=== PATIENT | female | born 1965 | race Caucasian/White ===

== ENCOUNTER 2020-06-04 07:51 | Outpatient (REF) | payer OTHER, SELFPAY ==
--- NOTE | 2020-06-04 07:57 | MM_ITS ---
EXAMINATION: MM SCREENING DIGITAL BREAST TOMOSYNTHESIS, BILATERAL CLINICAL INFORMATION: Screening. Asymptomatic. The lifetime risk of breast cancer based on the Tyrer-Cuzick Model is 9.7%. COMPARISON: Mammography: 05/30/2019 and studies dating back to 04/02/2014 TECHNIQUE: Digital breast tomosynthesis is performed in both the craniocaudal and mediolateral oblique views along with computer-aided detection (CAD). Synthesized 2D images are generated from the tomosynthesis. Left exaggerated craniocaudal view also performed. FINDINGS: The breasts are heterogeneously dense, which may obscure small masses (ACR BI-RADS breast composition Category c). Within the deep lateral aspect of the right breast on craniocaudal view only approximately 10 cm from nipple, there is a 1.2 cm circumscribed density for which further evaluation with spot compression view and possible ultrasound is recommended. Left breast has a stable parenchymal pattern without abnormal dominant mass or suspicious grouping of microcalcifications. MM/MM tomosynthesis screening BI IMPRESSION: Circumscribed density deep lateral aspect of the right breast for further evaluation. ASSESSMENT: BI-RADS 0: Incomplete - Need Additional Imaging Evaluation. RECOMMENDATION: 1. Additional views of the right breast in craniocaudal projection. 2. Targeted ultrasound if warranted after review of the additional views. 3. Radiology department staff will contact the patient for additional imaging. This patient's information was entered into a reminder system with a target due date for their next mammogram.
== END 2020-06-04 07:52 | disposition home or self-care (01) ==
LOC: HO.MAMMO 07:51
PROVIDERS: PCP Internal Medicine; Visit Provider Advanced Practice Midwife
DX: Z12.31 Encounter for screening mammogram for malignant neoplasm of breast (principal)
CPT/HCPCS: 77063; 77067

== ENCOUNTER 2020-06-09 14:25 | Outpatient (REF) | payer OTHER, SELFPAY ==
--- NOTE | 2020-06-09 14:45 | MM_ITS ---
EXAMINATION: MM DIAGNOSTIC DIGITAL BREAST TOMOSYNTHESIS, RIGHT US DIAGNOSTIC ULTRASOUND BREAST, RIGHT CLINICAL INFORMATION: Recall from screening for smooth nodule posterior outer right breast on CC tomography approximately 1.1 cm. COMPARISON: Mammography: 06/04/2020, 05/30/2019 TECHNIQUE: Digital breast tomosynthesis is performed. 2D images are generated from the tomosynthesis. The following views are obtained: Spot CC, spot exaggerated CC, standard ML. Ultrasound right breast is targeted to the outer quadrant. Grayscale imaging and color Doppler are performed without and with harmonics. FINDINGS: The breasts are heterogeneously dense, which may obscure small masses (ACR BI-RADS breast composition Category c). The additional views confirm a 1.1 cm smooth nodule posterior 9:30 o'clock position with partly obscured margins, due to the overlapping tissue. There is no spiculation or associated calcification. Finding is new from 2019. Ultrasound right breast demonstrates 2 simple cysts posterior 9:00 position, 10 cm from nipple, measuring 1.1 x 0.7 cm and 0.9 x 0.6 cm, respectively. Both show increased through-transmission of sound, circumscribed margins, and no associated color flow. There is no solid mass or architectural abnormality. Results are discussed with the patient at time of visit. MM/MM tomosynthesis added views R IMPRESSION: There are 2 simple cyst posterior 9:00 right breast, the larger 1.1 x 0.7 cm. ASSESSMENT: BI-RADS 2: Benign RECOMMENDATION: Routine annual mammography screening. This patient's information was entered into a reminder system with a target due date for their next mammogram.
== END 2020-06-09 14:26 | disposition home or self-care (01) ==
LOC: HO.MAMMO 14:25
PROVIDERS: Visit Provider Advanced Practice Midwife
DX: R92.2 Inconclusive mammogram (principal)
CPT/HCPCS: 76642; 77065

== ENCOUNTER 2020-06-29 07:19 | Outpatient (REF) | payer OTHER, SELFPAY ==
[2020-06-29 11:24] LABS: Hematocrit 44.2 % (37-47); Hemoglobin 14.5 g/dl (12.0-16.0); Mean Corpuscular HGB Conc 32.8 g/dl (31.0-35.0); Mean Corpuscular Hemoglobin 27.5 pg (27.0-33.0); Mean Corpuscular Volume 83.7 fL (80-98); Mean Platelet Volume 9.8 fL (9.4-12.3); Platelet Count 382 X10*3/uL (160-400); Red Blood Count 5.28 X10*6/uL (4.20-5.50); Red Cell Distribution Width 12.9 % (11.0-16.0); White Blood Count 8.9 X10*3/uL (4.8-10.8)
[2020-06-29 11:56] LABS: Alanine Aminotransferase 31 U/L (0-31); Albumin Level 4.4 g/dL (3.5-5.0); Alkaline Phosphatase 94 U/L (39-117); Anion Gap 12 (12-20); Aspartate Amino Transferase 20 U/L (5-31); Bilirubin Total 0.4 mg/dL (0.0-1.0); Blood Urea Nitrogen 19 mg/dL (9-16); Calcium 9.1 mg/dL (8.4-10.2); Carbon Dioxide 28 mmol/L (22-29); Chloride 102 mmol/L (96-108); Cholesterol 188 mg/dL; Estimated Glomerular Filt Rate > 60; Glucose Fasting 90 mg/dL (60-99); HDL Cholesterol 43 mg/dL; Iron 56 mcg/dL (30-160); LDL Cholesterol Calculated 116 mg/dl; Percent Iron Saturation 15 % (15-50); Potassium 3.8 mmol/l (3.3-5.1); Sodium 138 mmol/L (135-145); Total Iron Binding Capacity 377 mcg/dL (228-428); Triglycerides 147 mg/dL; Unsaturated Iron Binding 321 ug/dL
[2020-06-29 11:58] LABS: Glucose Urine UA NEG (NEG); Leukocyte Esterase Urine 1+ (NEG); Nitrite Urine NEG (NEG); PH 5.5 (5.0-8.0); Specific Gravity - Urine >= 1.030 (1.005-1.025); Urine Blood NEG (NEG); Urine Ketones NEG (NEG); Urine Protein NEG (NEG-TRACE)
[2020-06-29 12:05] LABS: Thyroid Stimulating Hormone 0.84 uIU/mL (0.32-4.0)
[2020-06-29 12:08] LABS: Appearance Urine TURBID; Color Urine YELLOW
[2020-06-29 12:58] LABS: Amorphous Sediment Urine 4+ /LPF; Bacteria Urine 1+ /LPF; RBC Urine 0 /HPF (0); Squamous Epithelial Cell Urine 1+ /LPF
== END 2020-06-29 07:20 | disposition home or self-care (01) ==
LOC: HO.HMGCLDS 07:19
PROVIDERS: PCP Internal Medicine; Visit Provider Internal Medicine
DX: D64.9 Anemia, unspecified (principal); E55.9 Vitamin D deficiency, unspecified; I10 Essential (primary) hypertension
CPT/HCPCS: 36415; 80053; 80061; 81001; 81003; 83540; 84443; 85027

== ENCOUNTER → 2020-07-15 07:51 | Outpatient (BNVA) | payer OTHER, SELFPAY | PROVIDERS: PCP Internal Medicine; Visit Provider Advanced Practice Midwife | DX: Z76.89 Persons encountering health services in other specified circumstances (principal) ==

== ENCOUNTER 2021-07-11 06:19 | Outpatient (REF) | payer OTHER, SELFPAY ==
[2021-07-11 11:59] LABS: Hematocrit 42.1 % (37.0-47.0); Hemoglobin 13.6 g/dl (12.0-16.0); Mean Corpuscular HGB Conc 32.3 g/dl (31.0-35.0); Mean Corpuscular Hemoglobin 27.1 pg (27.0-33.0); Mean Corpuscular Volume 83.9 fL (80.0-98.0); Platelet Count 409 X10*3/uL (160-400); Red Blood Count 5.02 X10*6/uL (4.20-5.50); Red Cell Distribution Width 13.3 % (11.0-16.0); White Blood Count 7.9 X10*3/uL (4.8-10.8)
[2021-07-11 12:48] LABS: Alanine Aminotransferase 22 U/L (0-31); Albumin Level 4.1 g/dL (3.5-5.0); Alkaline Phosphatase 94 U/L (39-117); Anion Gap 17 (12-20); Aspartate Amino Transferase 17 U/L (5-31); Bilirubin Total 0.3 mg/dL (0.0-1.0); Blood Urea Nitrogen 15 mg/dL (9-16); Calcium 9.4 mg/dL (8.4-10.2); Carbon Dioxide 23 mmol/L (22-29); Chloride 104 mmol/L (96-108); Cholesterol 204 mg/dL; Estimated Glomerular Filt Rate > 60; Glucose Fasting 93 mg/dL (60-99); HDL Cholesterol 40 mg/dL; LDL Cholesterol Calculated 131 mg/dl; Potassium 3.7 mmol/L (3.3-5.1); Sodium 140 mmol/L (135-145); Total Protein 6.7 g/dL (6.5-8.0); Triglycerides 165 mg/dL
== END 2021-07-11 06:20 | disposition home or self-care (01) ==
LOC: HO.HMGCLDS 06:19
PROVIDERS: PCP Internal Medicine; Visit Provider Internal Medicine
DX: Z00.00 Encounter for general adult medical examination without abnormal findings (principal); I10 Essential (primary) hypertension; Z13.220 Encounter for screening for lipoid disorders; Z13.29 Encounter for screening for other suspected endocrine disorder
CPT/HCPCS: 36415; 80053; 80061; 84443; 85027

== ENCOUNTER 2021-07-18 08:25 | Outpatient (REF) | payer OTHER, SELFPAY ==
[2021-07-21 21:22] LABS: HPV mRNA E6/E7 rflx Not Detected (Not Detected)
== END 2021-07-18 08:26 | disposition home or self-care (01) ==
LOC: HO.LAB 08:25
PROVIDERS: Visit Provider Advanced Practice Midwife
DX: Z01.419 Encounter for gynecological examination (general) (routine) without abnormal findings (principal); Z11.51 Encounter for screening for human papillomavirus (HPV); N95.1 Menopausal and female climacteric states
CPT/HCPCS: 87624; 88142

== ENCOUNTER 2021-07-18 13:02 | Outpatient (REF) | payer OTHER, SELFPAY ==
--- NOTE | ~2021-07-18 | MM_ITS ---
EXAMINATION: MM SCREENING DIGITAL BREAST TOMOSYNTHESIS, BILATERAL CLINICAL INFORMATION: Screening. Asymptomatic. The lifetime risk of breast cancer based on the Tyrer-Cuzick Model is 19%. COMPARISON: Mammography: 06/09/2020, 06/04/2020, 05/30/2019, 05/13/2018; right breast ultrasound 06/09/2020. TECHNIQUE: Digital breast tomosynthesis is performed in both the craniocaudal and mediolateral oblique views along with computer-aided detection (CAD). Synthesized 2D images are generated from the tomosynthesis. FINDINGS: The breasts are heterogeneously dense, which may obscure small masses (ACR BI-RADS breast composition Category c). Dense tissue composition is limited to the upper outer quadrants. Parenchymal pattern is similar to prior studies. The cyst posterior upper outer right breast is decreased from prior study. Otherwise, no significant changes. No developing density or interval mass or architectural abnormality. No abnormal calcifications. The axilla are unremarkable. MM/MM tomosynthesis screening BI IMPRESSION: No mammographic evidence of malignancy. ASSESSMENT: BI-RADS 2: Benign RECOMMENDATION: Routine annual mammography screening. This patient's information was entered into a reminder system with a target due date for their next mammogram.
== END 2021-07-18 13:03 | disposition home or self-care (01) ==
LOC: HO.MAMMO 13:02
PROVIDERS: PCP Internal Medicine; Visit Provider Internal Medicine
DX: Z12.31 Encounter for screening mammogram for malignant neoplasm of breast (principal)
CPT/HCPCS: 77063; 77067

== ENCOUNTER 2022-07-10 06:14 | Outpatient (REF) | payer OTHER, SELFPAY ==
[2022-07-10 11:20] LABS: Appearance Urine Turbid; Color Urine Yellow; Glucose Urine UA Negative (Negative); Leukocyte Esterase Urine Moderate (2+) (Negative); Nitrite Urine Positive (Negative); PH 5.5 (5.0-9.0); Specific Gravity - Urine 1.025 (1.005-1.025); UMIC TRIGGER UA YES; Urine Blood Large (3+) (Negative); Urine Ketones Negative (Negative); Urine Protein 100 (2+) mg/dL (Neg-Trace)
[2022-07-10 11:34] LABS: Bacteria Urine 4+ (None Seen); Hyaline Casts Urine 0-2 /LPF (0-2); RBC Urine >20 /HPF (0-2); WBC Urine >50 /HPF (0-5)
[2022-07-10 13:04] LABS: Hematocrit 42.4 % (37.0-47.0); Mean Corpuscular Hemoglobin 27.6 pg (27.0-33.0); Mean Corpuscular Volume 83.6 fL (80.0-98.0); Mean Platelet Volume 10.2 fL (9.4-12.3); Platelet Count 337 X10*3/uL (160-400); Red Blood Count 5.07 X10*6/uL (4.20-5.50); Red Cell Distribution Width 13.8 % (11.0-16.0); White Blood Count 6.6 X10*3/uL (4.8-10.8)
[2022-07-10 13:20] LABS: Alanine Aminotransferase 24 U/L (0-31); Albumin Level 3.9 g/dL (3.5-5.0); Alkaline Phosphatase 99 U/L (39-117); Anion Gap 13 (12-20); Aspartate Amino Transferase 16 U/L (5-31); Bilirubin Total 0.2 mg/dL (0.0-1.0); Blood Urea Nitrogen 16 mg/dL (9-16); Calcium 9.4 mg/dL (8.4-10.2); Carbon Dioxide 27 mmol/L (22-29); Chloride 102 mmol/L (96-108); Cholesterol 180 mg/dL; Estimated Glomerular Filt Rate > 60; Glucose Fasting 97 mg/dL (60-99); HDL Cholesterol 41 mg/dL; LDL Cholesterol Calculated 118 mg/dl; Potassium 3.6 mmol/L (3.3-5.1); Sodium 138 mmol/L (135-145); TSH reflex Free T4 0.82 uIU/mL (0.32-4.0); Total Protein 6.4 g/dL (6.5-8.0); Triglycerides 107 mg/dL
== END 2022-07-10 06:15 | disposition home or self-care (01) ==
LOC: HO.HMGCLDS 06:14
PROVIDERS: PCP Internal Medicine; Visit Provider Internal Medicine
DX: Z00.00 Encounter for general adult medical examination without abnormal findings (principal); I10 Essential (primary) hypertension
CPT/HCPCS: 36415; 80053; 80061; 81001; 84443; 85027

== ENCOUNTER 2022-07-15 07:12 | Outpatient (REF) | payer OTHER, SELFPAY | END 2022-07-15 07:13 | disposition home or self-care (01) | LOC: HO.HMGCLDS 07:12 | PROVIDERS: PCP Internal Medicine; Visit Provider Internal Medicine | DX: R82.71 Bacteriuria (principal) | CPT/HCPCS: 87086; 87088; 87186 ==

== ENCOUNTER 2022-07-20 13:07 | Outpatient (REF) | payer OTHER, SELFPAY ==
--- NOTE | ~2022-07-20 | MM_ITS ---
EXAMINATION: MM SCREENING DIGITAL BREAST TOMOSYNTHESIS, BILATERAL CLINICAL INFORMATION: Screening. Asymptomatic. The lifetime risk of breast cancer based on the Tyrer-Cuzick Model is 17.3%. COMPARISON: Mammography: 07/18/2021 and studies dating back to 04/20/2016. TECHNIQUE: Digital breast tomosynthesis is performed in both the craniocaudal and mediolateral oblique views along with computer-aided detection (CAD). Synthesized 2D images are generated from the tomosynthesis. FINDINGS: The breasts are heterogeneously dense, which may obscure small masses (ACR BI-RADS breast composition Category c). There is a stable parenchymal pattern of the left breast. About the superior aspect of the right breast, there is a developing grouping of calcifications, for which spot magnification views are recommended. MM/MM tomosynthesis screening BI IMPRESSION: Right breast calcifications for further evaluation with spot magnification views. ASSESSMENT: BI-RADS 0: Incomplete - Need Additional Imaging Evaluation RECOMMENDATION: Spot magnification views of the right breast. This patient's information was entered into a reminder system with a target due date for their next mammogram.
== END 2022-07-20 13:08 | disposition home or self-care (01) ==
LOC: HO.MAMMO 13:07
PROVIDERS: PCP Internal Medicine; Visit Provider Internal Medicine
DX: Z12.31 Encounter for screening mammogram for malignant neoplasm of breast (principal)
CPT/HCPCS: 77063; 77067

== ENCOUNTER 2022-07-27 08:47 | Outpatient (REF) | payer OTHER, SELFPAY ==
--- NOTE | ~2022-07-27 | MM_ITS ---
EXAMINATION: MM DIAGNOSTIC DIGITAL MAMMOGRAPHY, RIGHT CLINICAL INFORMATION: Recall from screening for calcifications mid 12:00 right breast. COMPARISON: Mammography: 07/20/2022, 07/18/2021, 06/09/2020, 06/04/2020 TECHNIQUE: Digital mammography is performed in the following views: Magnification CC, magnification ML x2. FINDINGS: The breasts are heterogeneously dense, which may obscure small masses (ACR BI-RADS breast composition Category c). The additional magnification views demonstrate a few additional relatively coarse calcifications in the mid 12:00 position since 2019 possibly fibroadenomatous change. Management plan is for short interval follow-up right mammography in 6 months. Results are discussed with the patient at time of visit. MM/MM added views RT IMPRESSION: Additional views demonstrate benign-appearing calcifications mid 12:00 position, possibly fibroadenomatous change. ASSESSMENT: BI-RADS 3: Probably Benign RECOMMENDATION: Diagnostic right mammography in 6 months. This patient's information was entered into a reminder system with a target due date for their next mammogram.
== END 2022-07-27 08:48 | disposition home or self-care (01) ==
LOC: HO.MAMMO 08:47
PROVIDERS: PCP Internal Medicine; Visit Provider Internal Medicine
DX: R92.1 Mammographic calcification found on diagnostic imaging of breast (principal)
CPT/HCPCS: 77065

== ENCOUNTER 2022-07-31 08:41 | Outpatient (REF) | payer OTHER, SELFPAY ==
[2022-07-31 11:48] LABS: Appearance Urine Turbid; Color Urine Dark Yellow; Glucose Urine UA Negative (Negative); Leukocyte Esterase Urine Negative (Negative); Nitrite Urine Negative (Negative); PH 5.5 (5.0-9.0); Specific Gravity - Urine 1.025 (1.005-1.025); Urine Blood Negative (Negative); Urine Ketones Negative (Negative); Urine Protein Negative (Neg-Trace)
== END 2022-07-31 08:42 | disposition home or self-care (01) ==
LOC: HO.HMGCLDS 08:41
PROVIDERS: PCP Internal Medicine; Visit Provider Internal Medicine
DX: Z00.00 Encounter for general adult medical examination without abnormal findings (principal); I10 Essential (primary) hypertension
CPT/HCPCS: 81003

== ENCOUNTER → 2022-10-11 07:51 | Outpatient (BNVA) | payer OTHER, SELFPAY | PROVIDERS: Visit Provider Advanced Practice Midwife | DX: Z13.89 Encounter for screening for other disorder (principal) ==

== ENCOUNTER 2022-10-25 10:28 | Outpatient (REF) | payer OTHER, SELFPAY ==
--- NOTE | ~2022-10-25 | US_ITS ---
EXAMINATION: US PELVIS CLINICAL INFORMATION: Menorrhagia. COMPARISON: None available. TECHNIQUE: Ultrasound of the pelvis was performed using both transabdominal and transvaginal transducers along with Doppler. Transvaginal imaging was performed due to inadequate visualization transabdominally. FINDINGS: Uterus: The uterus is anteverted and retroflexed measuring 8.8 x 6.4 x 6.2 cm. Large nabothian cysts are present, the largest measuring 1.5 cm. The double wall endometrial thickness is 0.7 mm. The uterus is smooth in contour and has normal myometrial echogenicity. There is a single 1.3 cm submucosal fibroid seen at the fundus. Adnexa: Only the right ovary could be seen measuring 2.4 x 1.4 x 1.5 cm for a volume of 2.6 mL. The left ovary was not seen. There is no free intraperitoneal fluid. US/US pelvic and transvaginal IMPRESSION: 1. A small 1.3 cm fundal submucosal fibroid. 2. Large nabothian cysts. 3. Nonvisualization of the left ovary.
[2022-10-26 18:58] LABS: Follicle Stimulating Hormone 94.9 mIU/mL
== END 2022-10-25 10:29 | disposition home or self-care (01) ==
LOC: HO.US 10:28
PROVIDERS: Visit Provider Advanced Practice Midwife
DX: N95.0 Postmenopausal bleeding (principal)
CPT/HCPCS: 36415; 76830; 76856; 83001

== ENCOUNTER 2022-11-10 10:09 | Outpatient (REF) | payer OTHER, SELFPAY | END 2022-11-10 10:10 | disposition home or self-care (01) | LOC: HO.LNP 10:09 | PROVIDERS: Visit Provider Advanced Practice Midwife | DX: N93.9 Abnormal uterine and vaginal bleeding, unspecified (principal); Z32.02 Encounter for pregnancy test, result negative; Z71.2 Person consulting for explanation of examination or test findings | CPT/HCPCS: 58100; 81025; 88305 ==

== ENCOUNTER → 2022-11-15 09:51 | Outpatient (BNVA) | payer OTHER, SELFPAY | PROVIDERS: PCP Internal Medicine; Visit Provider Advanced Practice Midwife | DX: Z13.89 Encounter for screening for other disorder (principal) ==

== ENCOUNTER 2023-01-26 14:40 | Outpatient (REF) | payer OTHER, SELFPAY ==
--- NOTE | ~2023-01-26 | MM_ITS ---
EXAMINATION: MM DIAGNOSTIC DIGITAL BREAST TOMOSYNTHESIS, RIGHT CLINICAL INFORMATION: Short interval follow-up probable benign calcifications mid 12:00 right breast possibly fibroadenomatous change. TC score 17%. COMPARISON: Mammography: 07/27/2022, 07/20/2022 (BI-RADS 0), 07/18/2021 TECHNIQUE: Digital breast tomosynthesis is performed in both the craniocaudal and mediolateral oblique views along with computer-aided detection (CAD). Synthesized 2D images are generated from the tomosynthesis. Additional magnification right CC and magnification right ML views are obtained. FINDINGS: The breasts are heterogeneously dense, which may obscure small masses (ACR BI-RADS breast composition Category c). The calcifications for follow-up are benign-appearing and similar to prior diagnostic exam. There are no increasing calcifications or pleomorphic types. Breast parenchymal pattern is similar to prior studies and there is no developing density or interval mass or architectural abnormality. The axilla and skin contours are unremarkable. Results are provided to the patient at time of visit by the technologist. MM/MM tomosynthesis diagnostic RT IMPRESSION: -Benign appearing calcifications mid upper right breast similar to prior diagnostic exam. ASSESSMENT: BI-RADS 3: Probably Benign RECOMMENDATION: Diagnostic mammography at time of annual bilateral mammography, due in 6 months. This patient's information was entered into a reminder system with a target due date for their next mammogram.
== END 2023-01-26 14:41 | disposition home or self-care (01) ==
LOC: HO.MAMMO 14:40
PROVIDERS: PCP Internal Medicine; Visit Provider Internal Medicine
DX: R92.1 Mammographic calcification found on diagnostic imaging of breast (principal)
CPT/HCPCS: 77061; 77065

== ENCOUNTER 2023-07-23 06:52 | Outpatient (REF) | payer OTHER, SELFPAY ==
[2023-07-23 11:16] LABS: MANUAL DIFF FLAG NO
[2023-07-23 11:39] LABS: Basophils Absolute Auto 0.1 X10*3/uL (0.0-0.2); Basophils Percent Auto 0.9 % (0-2); Eosinophils Absolute Auto 0.2 X10*3/uL (0.0-0.4); Eosinophils Percent Auto 3.2 % (0-4); Hematocrit 44.8 % (37.0-47.0); Hemoglobin 14.8 g/dl (12.0-16.0); Imm Gran Abs Auto 0.02 X10*3/uL (0.00-0.03); Imm Gran Pct Auto 0.3 % (0.0-0.4); Mean Corpuscular Hemoglobin 28.1 pg (27.0-33.0); Mean Platelet Volume 9.9 fL (9.4-12.3); Monocytes Absolute Auto 0.6 X10*3/uL (0.1-1.2); Monocytes Percent Auto 8.6 % (2-11); Platelet Count 342 X10*3/uL (160-400); Red Blood Count 5.27 X10*6/uL (4.20-5.50); Red Cell Distribution Width 13.3 % (11.0-16.0); White Blood Count 6.9 X10*3/uL (4.8-10.8)
[2023-07-23 12:10] LABS: Alanine Aminotransferase 40 U/L (0-31); Albumin Level 4.3 g/dL (3.5-5.0); Alkaline Phosphatase 98 U/L (39-117); Anion Gap 14 (12-20); Aspartate Amino Transferase 26 U/L (5-31); Bilirubin Total 0.5 mg/dL (0.0-1.0); Blood Urea Nitrogen 17 mg/dL (9-16); Calcium 9.8 mg/dL (8.4-10.2); Carbon Dioxide 25 mmol/L (22-29); Chloride 106 mmol/L (96-108); Cholesterol 198 mg/dL (<200); Estimated Glomerular Filt Rate > 60; Glucose Fasting 105 mg/dL (60-99); HDL Cholesterol 45 mg/dL (>40); LDL Cholesterol Calculated 127 mg/dL (<100); Potassium 3.6 mmol/L (3.3-5.1); Sodium 141 mmol/L (135-145); Total Protein 7.3 g/dL (6.5-8.0); Triglycerides 131 mg/dL (<150)
[2023-07-23 12:28] LABS: TSH reflex Free T4 0.87 uIU/mL (0.32-4.0); Vitamin D 25-OH Total 82.1 ng/mL (>30)
== END 2023-07-23 06:53 | disposition home or self-care (01) ==
LOC: HO.HMGCLDS 06:52
PROVIDERS: PCP Internal Medicine; Visit Provider Internal Medicine
DX: Z00.00 Encounter for general adult medical examination without abnormal findings (principal); I10 Essential (primary) hypertension
CPT/HCPCS: 36415; 80053; 80061; 82306; 84443; 85025

== ENCOUNTER 2023-07-24 06:45 | Outpatient (REF) | payer OTHER, SELFPAY | END 2023-07-24 06:46 | disposition home or self-care (01) | LOC: HO.HMGCLNP 06:45 | PROVIDERS: PCP Internal Medicine; Visit Provider Internal Medicine | DX: I10 Essential (primary) hypertension (principal); R82.71 Bacteriuria | CPT/HCPCS: 87086; 87088; 87186 ==

== ENCOUNTER 2023-08-01 07:45 | Outpatient (AMB) | payer OTHER, SELFPAY ==
--- NOTE | 2023-08-01 08:08 | MHC.PC.OV ---
Vital Signs 08/01/23 08:09 Height 5 ft 9 in Weight 240 lb BMI 35.4 BP 120/78 Blood Pressure Location Lt brachial Position Sitting Pulse 79 Pulse Source Pulse Oximeter Pulse Oximetry (%) 97 Oxygen Delivery Method Room Air Intake Visit Reasons: Annual Intake Note: Pt is here today for PE. Allergies No Known Allergies Allergy (Verified 08/01/23 08:10) Medication List - Last Reconciled 08/01/23 by Sangeetha Mukherjee MD amlodipine 5 mg PO DAILY hydrochlorothiazide 25 mg PO QAM lisinopril 40 mg PO DAILY nitrofurantoin monohyd/m-cryst 100 mg (Macrobid) 100 mg PO Q12H 7 days Tobacco use date assessed: 08/01/23 Dental Screening Dental Screen Date: 08/01/23 Did you have a dental visit in the last 12 months?: Yes Did you have a dental problem in the last 6 months where you did not have access to dental care?: No Was dental information given to patient?: Patient has dentist HPI Annual HPI Details Patient presents for physical. She is taking Macrobid for asymptomatic bacteriuria. 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 1. Little interest or pleasure in doing things: not at all 2. Feeling down, depressed, or hopeless: not at all 3. Trouble falling or staying asleep, or sleeping too much: not at all 4. Feeling tired or having little energy: not at all 5. Poor appetite or overeating: not at all 6. Feeling bad about yourself - or that you are a failure or have let yourself or your family down: not at all 7. Trouble concentrating on things, such as reading the newspaper or watching television: not at all 8. Moving or speaking so slowly that other people could have noticed. Or the opposite - being so fidgety or restless that you have been moving around a lot more than usual: not at all 9. Thoughts that you would be better off or of hurting yourself in some way: not at all Total score: 0 Depression Screening Interpretation: Negative Depression Screening Done: Yes 54749 - PHQ-9 Billing: Patient declined-do not bill Source: Developed by Drs. Kyle Siddiqui, Echo Gamboa, Aung Cr and colleagues, with an educational campbell from [employer]. Thrive Questionnaire Date Thrive assessed: 08/01/23 I am a: Patient What is your living situation today?: I have a steady place to live Within the past 12 months, did the food you bought not last and you didn't have the money to get more?: Never true Within the past 12 months, did you worry whether your food would run out before you got money to buy more?: Never true Do you have trouble paying for medicines?: No Do you have trouble getting transportation to medical appointments?: No Do you have trouble paying your heating and electricity bill?: No Do you have trouble taking care of your child, family member or friend?: No Do you have trouble with day-to-day activities such as bathing, preparing meals, shopping, managing finances, etc.?: No Are you currently unemployed and looking for a job?: No Are you interested in more education?: No Please select the resources that you would like help with: None AUDIT C Alcohol Use Questionnaire (AUDIT-C) 1. How often do you have a drink containing alcohol?: Monthly or less 2. How many drinks containing alcohol do you have on a typical day when you are drinking?: 1 or 2 3. How often do you have six or more drinks on one occasion?: Never Total Score: 1 GERSON-7 AMB Questionnaire GERSON-7 Date GERSON - 7 assessed: 08/01/23 Feeling nervous, anxious, or on edge: 0 = Not at all Not being able to stop or control worryin = Not at all Worrying too much about different things: 0 = Not at all Trouble relaxin = Not at all Being so restless that it is hard to sit still: 0 = Not at all Becoming easily annoyed or irritable: 0 = Not at all Feeling afraid as if something awful might happen: 0 = Not at all Total GERSON-7 score (0-4 normal; 5-9 mild; 10-14 moderate; 15-21 severe): 0 Source: Developed by Drs. Kyle Siddiqui, Echo Gamboa, Aung Cr and colleagues, with an educational campbell from [employer]. Review of Systems Const All systems reviewed & are unremarkable except as noted in HPI and below Reports no additional complaints Eyes Reports no additional complaints ENT Reports no additional complaints Card Reports no additional complaints Resp Reports no additional complaints GI Reports no additional complaints Reports no additional complaints Physical exam (Primary Care) Vital Signs: Last Vital Signs Pulse 79 08/01/23 08:09 BP 120/78 08/01/23 08:09 Pulse Ox 97 08/01/23 08:09 Oxygen Delivery Method Room Air 08/01/23 08:09 BMI result Body Mass Index 35.4 Tobacco/Smoking Status: Tobacco use Status Tobacco use date assessed 08/01/23 08/01/23 08:12 Patient Tobacco Use Status Never used Tobacco 08/01/23 08:14 e-Cigarette/Vaping Use Never Used 08/01/23 08:12 PHQ-9: PHQ-9 Score PHQ-9: Total score 0 08/01/23 08:14 Depression Screening Interpretation: Negative Thrive Assessment: Date of Thrive Assessment Date Thrive assessed 08/01/23 08/01/23 08:14 Const General: no acute distress HENMT Ears: hearing grossly normal bilaterally Mouth: Normal oral and palatal mucosa present Eyes General: appearance normal, both eyes and all related structures Neck Neck: Yes no lymphadenopathy and Yes supple Resp Effort & Inspection: normal respiratory effort Auscultation: clear to auscultation bilaterally Cardio Rhythm: regular rhythm Heart sounds: S1 normal heart sound present and S2 normal heart sound present GI Inspection: Yes normal to inspection Palpation (GI): Soft to palpation Percussion: Yes normal to percussion Auscultation: normal bowel sounds Assessment and Plan Assessment & Plan (1) Bacteriuria: Code(s): R82.71 - Bacteriuria Plan: For asymptomatic bacteriuria patient will complete Macrobid and recheck urinalysis with urine culture a week after the treatment (2) HTN (hypertension): Code(s): I10 - Essential (primary) hypertension Plan: Continue current medications (3) Annual physical exam: Code(s): Z00.00 - Encounter for general adult medical examination without abnormal findings Plan: Well-balanced diet regular physical activity weight loss discussed with the patient, she will follow-up in 6 months with a fasting labs before (4) Normal 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 Panel Fast 6 Months I10 - Essential (primary) hypertension, R73.9 - Hyperglycemia, unspecified, Z00.00 - Encounter for general adult medical examination without abnormal findings Hemoglobin A1c 6 Months I10 - Essential (primary) hypertension, R73.9 - Hyperglycemia, unspecified, Z00.00 - Encounter for general adult medical examination without abnormal findings Lipid Panel 6 Months I10 - Essential (primary) hypertension, R73.9 - Hyperglycemia, unspecified, Z00.00 - Encounter for general adult medical examination without abnormal findings UA CC w/rflx Micro + Cult Today R82.71 - Bacteriuria Coding Level of Care Code Est Pt Prev Care 40-64y([id number]) Diagnoses Bacteriuria R82.71 HTN (hypertension) I10 Annual physical exam Z00.00 Normal Pap smear Z12.4
[2023-08-01 08:09] VITALS: BP 120/78; PULSE 79; O2SAT 97; BMI 35.4
== END 2023-08-01 09:31 | disposition home or self-care (01) ==
PROVIDERS: Visit Provider Internal Medicine
DX: R82.71 Bacteriuria (principal); I10 Essential (primary) hypertension; Z00.00 Encounter for general adult medical examination without abnormal findings; Z12.4 Encounter for screening for malignant neoplasm of cervix
CPT/HCPCS: 99396

== ENCOUNTER 2023-08-03 10:42 | Outpatient (REF) | payer OTHER, SELFPAY ==
--- NOTE | ~2023-08-03 | MM_ITS ---
EXAMINATION: MM DIAGNOSTIC DIGITAL BREAST TOMOSYNTHESIS, BILATERAL CLINICAL INFORMATION: 6 month re-evaluation calcifications right breast upper outer quadrant. COMPARISON: Mammography: 07/27/2022, 07/20/2022 (BI-RADS 0), 07/18/2021, and dating back to 2016. TECHNIQUE: Digital breast tomosynthesis is performed in both the craniocaudal and mediolateral oblique views along with computer-aided detection (CAD). Synthesized 2D images are generated from the tomosynthesis. In addition, 2-D spot magnification of the right breast in the CC and ML views were performed. FINDINGS: There are scattered areas of fibroglandular density (ACR BI-RADS breast composition Category b). Calcifications in the upper outer right breast have a very benign type appearance, are not pleomorphic, are rounded, without branching or linear forms, with approximately 5 total calcifications. These are probably benign, and 1 year follow-up recommended. In addition, a focal asymmetry in the left breast posterior one third, 6:00 axis is most likely related to a cyst and has been stable since 2018. This is benign. A second focal asymmetry in the posterior one third right breast along the nipple line on the CC projection has also been present and unchanged since 2020, benign. No additional abnormal findings in either breast. MM/MM tomosynthesis diagnostic BI IMPRESSION: There are no findings suspicious for malignancy in either breast. Probably benign calcifications upper outer right breast as detailed. 1 year follow-up recommended to include standard magnification views. ASSESSMENT: BI-RADS BI-RADS 3 - Probably benign finding(s) - 12 month follow-up suggested RECOMMENDATION: 12 month diagnostic follow up Results were provided to the patient at time of visit by the technologist. This patient's information was entered into a reminder system with a target due date for their next mammogram.
== END 2023-08-03 10:43 | disposition home or self-care (01) ==
LOC: HO.MAMMO 10:42
PROVIDERS: PCP Internal Medicine; Visit Provider Internal Medicine
DX: R92.1 Mammographic calcification found on diagnostic imaging of breast (principal)
CPT/HCPCS: 77062; 77066

== ENCOUNTER → 2023-08-03 11:00 | Outpatient (BNV) | payer OTHER, SELFPAY | PROVIDERS: PCP Internal Medicine; Visit Provider Radiology Diagnostic Radiology | DX: R92.1 Mammographic calcification found on diagnostic imaging of breast (principal) | CPT/HCPCS: 77062; 77066 ==

== ENCOUNTER 2023-10-17 07:52 | Outpatient (AMB) | payer OTHER, SELFPAY ==
--- NOTE | 2023-10-17 07:55 | MHC.OFFVIS ---
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 She is doing well with no concerns. LMP January, bleeds-spotting every 23d. History of polypoid tissue on EMB. Attempting to eat a healthy diet (weight watcher) with calcium and vitamin D, working on exercise. Currently sexually active. Denies any vaginal dryness or irritation. Last pap smear; 2020. Last mammogram; 2022. Colonoscopy is UTD. Denies any family history of breast, ovarian or colon cancer. 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 Current occupational exposures/hazards: No Sexual orientation: Straight/Heterosexual Gender identity: Female Cognitive needs: No Hearing needs: No Vision needs: Yes Female Reproductive History Menstrual Age of Menarche: 12 Date of last menstrual period: 01/13/23 Total pregnancies: 1 Full term: 1 Number of Living Children: 1 Date of last pap smear: 07/18/21 (neg pap and hpv) History of abnormal pap smear: Yes (04/30 ascus) Date of Mammogram: 08/03/23 (Birad 3) Review of Systems Const All systems reviewed & are unremarkable except as noted in HPI and below Reports as per HPI Eyes Reports no additional complaints ENT Reports no additional complaints Card Reports no additional complaints Resp Reports no additional complaints GI Reports as per HPI and Reports no additional complaints Reports as per HPI Musc Reports no additional complaints Skin/Breast Reports as per HPI Neuro Reports no additional complaints Psych Reports no additional complaints Endo Reports no additional complaints Josef/Lymph Reports no additional complaints Aller/Immun Reports no additional complaints Physical Exam Vital Signs: Last Vital Signs BP 114/70 10/17/23 07:58 BMI result Body Mass Index 34.8 Const General: cooperative, healthy appearing, no acute distress, well developed and alert Orientation/consciousness: patient oriented x3 HEENT Head: Yes normal to inspection Eyes General: appearance normal, both eyes and all related structures Neck Neck: Yes normal visual inspection Thyroid: Thyroid normal Chest Chest palpation & inspection: normal inspection of the chest and other (no puckering, dimpling, peau de orange, retraction, discharge, masses) Breast/axilla inspection: normal inspection of the breasts Breast/axilla palpation: normal palpation of the breasts Resp Effort & Inspection: normal respiratory effort GI Inspection: Yes normal to inspection Palpation (GI): Soft to palpation Rectal Exam - Female: deferred General: Yes bladder normal to palpation External Female Exam: normal external appearance and normal appearance of the urethra Speculum Exam - Vagina: normal appearance of the vagina, normal palpation and normal vaginal discharge Speculum Exam - Cervix: normal appearance of the cervix and normal palpation Bimanual exam- vagina & uterus: normal bimanual exam, normal palpation, uterine size normal, bladder normal to palpation, normal palpation and non-tender Bimanual Exam- Adnexa, other: no masses Skin General skin exam: no rashes or lesions noted Rashes: no rashes Neuro General: patient oriented x3 Cognition (Neuro): normal cognition Extrem General: Yes normal to inspection Psych Attitude: cooperative Thought process: Normal thought process present Assessment & Plan Assessment & Plan (1) Well woman exam with routine gynecological exam: Code(s): Z01.419 - Encounter for gynecological examination (general) (routine) without abnormal findings Plan Discussed: Current recommendations for pap smears per ASCCP guidelines. Breast awareness, periodic self breast exams and yearly mammogram. Maintain a healthy lifestyle, well balanced diet including Calcium 1,200 mg and Vitamin D 600 IU daily, and routine exercise. Appt. for MD consult for hysteroscopy next week. Patient verbalizes understanding and agrees to the plan of care. She was given opportunity to ask questions and all questions were answered to the best of my ability. RTO in 1 year for annual game artist exam. This note is constructed using voice recognition software. While every effort has been made to ensure accuracy, web solutions architect errors may have been included. Coding Level of Care Code Est Pt Prev Care 40-64y(18570) Diagnoses Well woman exam with routine gynecological exam Z01.419
[2023-10-17 07:58] VITALS: BP 114/70; BMI 34.8
== END 2023-10-17 09:38 | disposition home or self-care (01) ==
PROVIDERS: PCP Internal Medicine; Visit Provider Advanced Practice Midwife
DX: Z01.419 Encounter for gynecological examination (general) (routine) without abnormal findings (principal)
CPT/HCPCS: 99396

== ENCOUNTER → 2023-10-17 07:52 | Outpatient (BNVA) | payer OTHER, SELFPAY | PROVIDERS: PCP Internal Medicine; Visit Provider Advanced Practice Midwife ==

== ENCOUNTER 2023-10-24 15:58 | Outpatient (AMB) | payer OTHER, SELFPAY ==
--- NOTE | 2023-10-24 16:06 | A.OFFVIS_ITS ---
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 The patient has been having irregular vaginal bleeding/spotting over the last year. Last ultrasound done in 11/02 showed the following: IMPRESSION: 1. A small 1.3 cm fundal submucosal fibr oid. 2. Large nabothian cysts. 3. 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 Current occupational exposures/hazards: No Sexual orientation: Straight/Heterosexual Gender identity: Female Cognitive needs: No Hearing needs: No Vision needs: Yes Female Reproductive History Menstrual Age of Menarche: 12 Date of last menstrual period: 06/10/20 Total pregnancies: 2 Full term: 2 Review of Systems Card Reports as per HPI and Reports no additional complaints Resp Reports as per HPI and Reports no additional complaints GI Reports as per HPI and Reports no additional complaints Reports as per HPI Physical Exam Vital Signs: Last Vital Signs BP 118/74 10/24/23 16:09 BMI result Body Mass Index 34.8 Const General: cooperative, healthy appearing and comfortable Chest Chest palpation & inspection: normal inspection of the chest and normal palpation of entire chest wall Breast/axilla inspection: normal inspection of the breasts and normal inspection of the axillae Breast/axilla palpation: normal palpation of the breasts, normal palpation of the axillae and no axillary lymphadenopathy Resp Effort & Inspection: normal respiratory effort Auscultation: clear to auscultation bilaterally Percussion: percussion normal Cardio Palpation: normal PMI Rate: regular rate Rhythm: regular rhythm Heart sounds: no murmurs and no rubs Peripheral pulses: Peripheral pulses 2+ throughout GI Inspection: Yes normal to inspection Palpation (GI): Soft to palpation, nontender, no guarding, not rigid and No hepatosplenomegaly present Percussion: Yes normal to percussion Auscultation: normal bowel sounds Rectal Exam - Female: deferred Assessment & Plan Assessment & Plan (1) Postmenopausal bleeding: Comment: polyp on emb path submucosal myoma Code(s): N95.0 - Postmenopausal bleeding Plan: Discussed with the patient the differential diagnosis of post menopausal bleeding including but not limited to, endometrial hyperplasia, cancer, polyps and other causes. Discussed with the patient the finding on endometrial biopsy pathology showing fragments endometrial polyp and the finding of a submucosal myoma on pelvic ultrasound done in 11/02. Recommended to the patient repeat pelvic ultrasound and that the next step is an endometrial sampling via hysteroscopy D&C possible polypectomy versus endometrial biopsy to r/o endometrial pathology including hyperplasia or cancer. All the pros and cons risks and benefits of each approach were discussed with the patient, endometrial biopsy being less invasive, office procedure with less sensitivity and inability diagnose a polyp and removal versus hysteroscopy done under anesthesia more invasive more sensitive to endometrial cancer and possibility of diagnosing and endometrial polyp with the possibility of polypectomy. All questions were answered pt verbalized understanding and decided to proceed with endometrial biopsy (2) Uterine myoma: Code(s): D25.9 - Leiomyoma of uterus, unspecified Plan: Since a 1.3 cm submucosal myoma was found on ultrasound done a year ago, will repeat pelvic ultrasound Orders: Orders US pelvic and transvaginal 10/24/23 N95.0 - Postmenopausal bleeding Coding Level of Care Code Est Pt Level 3 (96933) Diagnoses Postmenopausal bleeding N95.0 Uterine myoma D25.9
[2023-10-24 16:09] VITALS: BP 118/74; BMI 34.8
== END 2023-10-25 07:28 | disposition home or self-care (01) ==
PROVIDERS: PCP Internal Medicine; Visit Provider Obstetrics & Gynecology
DX: N95.0 Postmenopausal bleeding (principal); D25.9 Leiomyoma of uterus, unspecified
CPT/HCPCS: 99213

== ENCOUNTER → 2023-10-24 15:58 | Outpatient (BNVA) | payer OTHER, SELFPAY | PROVIDERS: PCP Internal Medicine; Visit Provider Obstetrics & Gynecology ==

== ENCOUNTER 2023-11-09 11:16 | Outpatient (REF) | payer OTHER, SELFPAY ==
--- NOTE | ~2023-11-09 | US_ITS ---
EXAMINATION: US PELVIS CLINICAL INFORMATION: Postmenopausal bleeding. COMPARISON: 10/25/2022 TECHNIQUE: Ultrasound of the pelvis is performed using both transabdominal and transvaginal transducers along with Doppler. Transvaginal imaging is performed due to inadequate visualization transabdominally. FINDINGS: The uterus measures 9.9 x 4.3 x 5.1 cm. A 1.5 x 1.5 x 1.7 cm fibroid. Previous exam demonstrated a 1.2 x 1.1 x 1.3 cm fibroid. 0.5 cm hypoechoic uterine lesion characteristic of a fibroid was not previously identified. No significant free fluid. Left ovary not visualized. Limited visualization due to bowel gas. Endometrial thickness is 6 mm. Right ovary measures 1.8 x 1.1 x 1.4 cm, volume 1.5 mL. Right ovary is grossly unremarkable, however, visualization is limited due to bowel gas. US/US pelvic and transvaginal IMPRESSION: Endometrial thickness is 6 mm which is abnormal for a patient with postmenopausal bleeding. Gynecologic consultation and correlation with clinical exam recommended to determine further management including possible biopsy. Uterine fibroids. Nonvisualization of the left ovary.
== END 2023-11-09 11:17 | disposition home or self-care (01) ==
LOC: HO.US 11:16
PROVIDERS: PCP Internal Medicine; Visit Provider Obstetrics & Gynecology
DX: N95.0 Postmenopausal bleeding (principal)
CPT/HCPCS: 76830; 76856

== ENCOUNTER 2023-11-23 05:49 | Day surgery (SDC) | payer OTHER, SELFPAY ==
[2023-11-20 07:46] VITALS: BMI 34.7
--- NOTE | 2023-11-21 11:39 | HO.ANESPROP2 ---
Documented by User: Ruthann Greer NP 11/21/23 11:40 HPI - Anesthesia Eval Consult details Narrative: 58yo F for D&C Hysteroscopy,possible myomectomy,possible polypectomy PMFSH Active Problems Active Problems: All Active Problems Uterine myoma (Acute) Postmenopausal bleeding (Acute) Hyperglycemia (Acute) Bacteriuria (Acute) HTN (hypertension) (Acute) Normal colonoscopy (Acute) Annual physical exam (Acute) Mammogram normal (Acute) Normal Pap smear (Acute) Well woman exam with routine gynecological exam (Acute) Past Medical History Medical History Normal colonoscopy Annual physical exam Mammogram normal Normal Pap smear Malignant melanoma Elevated cholesterol HTN (hypertension) Family History Family History Paternal Aunt Breast cancer Surgical History Surgical History History of Social History Social History Housing: House Alcohol intake: never Patient Tobacco Use Status: Never used Tobacco e-Cigarette/Vaping Use: Never Used Second Hand Smoke Exposure: No Use of substances other than those prescribed or required for medical reasons: No Are you DNR?: No Advance Directives: No Advance Directives Information Provided: Yes service: No Current occupational status: employed 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 Current occupational exposures/hazards: No Sexual orientation: Straight/Heterosexual Gender identity: Female Cognitive needs: No Hearing needs: No Vision needs: Yes Meds Allergies Allergy/AdvReac Type Severity Reaction Status Date / Time No Known Allergies Allergy Verified 10/24/23 16:09 Exam Height,Weight and Vital Signs: Height 5 ft 9 in Weight 106.594 kg Pertinent Lab Results Pertinent Lab Results: Laboratory Tests 07/23/23 06:55 WBC 6.9 Hgb 14.8 Hct 44.8 Plt Count 342 Sodium 141 Potassium 3.6 Chloride 106 Carbon Dioxide 25 BUN 17 H Creatinine 0.85 Assessment and Plan Assessment Anesthesia Assessment: Chart Reviewed Documented by User: Dickson Jones MD 11/23/23 07:29 PMF Past Medical History Medical History Normal colonoscopy Annual physical exam Mammogram normal Normal Pap smear Malignant melanoma Elevated cholesterol HTN (hypertension) Family History Family History Paternal Aunt Breast cancer Family history of problems with anesthesia: No Surgical History Surgical History History of History of Problems with Anesthesia: No Social History Social History Housing: House Alcohol intake: never Patient Tobacco Use Status: Never used Tobacco e-Cigarette/Vaping Use: Never Used Second Hand Smoke Exposure: No Use of substances other than those prescribed or required for medical reasons: No Are you DNR?: No Advance Directives: No Advance Directives Information Provided: Yes service: No Current occupational status: employed 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 Current occupational exposures/hazards: No Sexual orientation: Straight/Heterosexual Gender identity: Female Cognitive needs: No Hearing needs: No Vision needs: Yes Meds Allergies Allergy/AdvReac Type Severity Reaction Status Date / Time No Known Allergies Allergy Verified 10/24/23 16:09 Exam Airway Mallampati Class: I TM Dist: <=3cm Neck ROM: Full Loose/Missing/Broken Teeth: No Heart: ok Lungs: ok Assessment and Plan Assessment Anesthesia Assessment: Anesthesia Plan Discussed Final Anesthetic Review Family History of Problems with Anesthesia: No History of Problems with Anesthesia: No NPO: Yes ASA Class: II Final Preanesthetic Review: No Changes in Pt Med Stat, Meds/Allgs Chart Reviewed, Consent Obtained/Reviewed and Anes Risks/Benef Reviewed Patient Risk: Intermediate Procedure Risk: Low Anesthetic Plan Anesthetic Plan: GA and Agree w/ Assess. and Plan Disposition: Standard PACU
[2023-11-23 06:10] VITALS: BMI 35.4
[2023-11-23 06:19] VITALS: BP 115/69; PULSE 92; RESP 16; TEMP 36.2; O2SAT 93
[2023-11-23] MEDS: Lactated Ringers 1,000 ML 100 ML IVCONT (06:34)
--- NOTE | 2023-11-23 07:27 | MHC.SHP ---
Pre-Procedural Eval Section A - 24 Hr Update-Section A only Date of Service: 11/23/23 The patient is an INPATIENT: No Changes since office visit: No Cold of Flu in the past 2 weeks, No New Medical Problems, No Changes in Medication and No Patient answered all questions The patient has been examined within 24 hours of the surgical procedure. The History & Physical has been completed within 30 days and I have reviewed it.: Yes Section B - Complete if H&P > 30 days Chief Complaint: Postmenopausal bleeding Allergies: Allergies Allergy/AdvReac Type Severity Reaction Status Date / Time No Known Allergies Allergy Verified 10/24/23 16:09 Plan Diagnosis/Plan: Unchanged I have reviewed the history and physical and performed a pertinent physical examination on my patient. No changes have occurred unless specified. Time Spent With Patient Time: Total time managing care of this patient today ____ minutes.
--- NOTE | 2023-11-23 08:12 | P.BOP_ITS ---
Brief Operative Note Date of Service: 11/23/23 Pre-op diagnosis: Postmenopausal bleeding, endometrial polyp on EMB pathology Post-op diagnosis: same (Endometrial polyp) Procedure: Hysteroscopy D&C, Polypectomy Surgeon: Pete Lim MD Anesthesia: GLMA Was an Compressed Gases Tester used for this Procedure?: No Estimated blood loss (mL): 0 Pathology: other (Endometrial Scrapping. Polyp) Condition: stable Disposition: PACU
--- NOTE | 2023-11-23 08:13 | W.PM.OPN ---
Operative Note Operative Note Date of Service: 11/23/23 Narrative: Preop Diagnosis: Postmenopausal bleeding, Endometrial polyp on EMB pathology Operation: Diagnostic Hysteroscopy, Dilataion & Curettage and polypectomy Post Op Diagnosis: Endometrial Polyp QBL: Minimal Anesthesia: GLMA Surgeon: Pete Lim MD Ping Pong Table Assembler: None Complication: None Pathology: Endometrial Scrapings, Endometrial polyp Procedure: The patient was put in the dorsal lithotomy position, scrubbed, and draped in the usual manner. A sterile speculum was inserted in the patient's vagina. The anterior lip of the cervix was grasped with a single tooth tenaculum. The cervix was dilated up to 5 mm, then the scope was inserted in the patient's uterus. Inspection revealed endometrial polyp. The Myosure Reach device was used; it was introduced through the operative channel and polypectomy done with no complications. The scope was then taken out from the uterine cavity, sharp curettings was carried on with minimal to moderate amount of tissues retrieved. At the end of the procedure, all instruments were taken out of the patient uterine and vaginal cavity. The single tooth tenaculum was removed and homeostasis was assured using pressure,. The patient tolerated the procedure well and was transferred to the PACU in a stable condition.
[2023-11-23 08:16] VITALS: BP 104/50; PULSE 76; RESP 14; TEMP 36.4; O2SAT 92
[2023-11-23 08:22] VITALS: BP 100/58; PULSE 70; RESP 18; O2SAT 96
[2023-11-23 08:27] VITALS: BP 104/62; PULSE 70; RESP 18; O2SAT 96
[2023-11-23 08:32] VITALS: BP 111/59; PULSE 77; RESP 18; TEMP 36.6; O2SAT 98
== END 2023-11-23 09:01 | disposition home or self-care (01) ==
PROVIDERS: PCP Internal Medicine; Visit Provider Obstetrics & Gynecology
PROC: 0UDB8ZZ Extraction of Endometrium, Via Natural or Artificial Opening Endoscopic (ICD-10-PCS; CPT 58558; principal; 2023-11-23 07:30)
DX: N95.0 Postmenopausal bleeding (principal); N84.0 Polyp of corpus uteri; D25.9 Leiomyoma of uterus, unspecified; I10 Essential (primary) hypertension; E78.00 Pure hypercholesterolemia, unspecified; Z85.820 Personal history of malignant melanoma of skin; Z79.899 Other long term (current) drug therapy
CPT/HCPCS: 58558; 88305; J1885; J2405; J2704; J3010

== ENCOUNTER → 2023-11-23 05:49 | Outpatient (BNV) | payer OTHER, SELFPAY | PROVIDERS: PCP Internal Medicine; Visit Provider Obstetrics & Gynecology | DX: N95.0 Postmenopausal bleeding (principal) | CPT/HCPCS: 58558 ==

== ENCOUNTER 2023-12-05 11:44 | Outpatient (AMB) | payer OTHER, SELFPAY ==
--- NOTE | 2023-12-05 11:47 | MHC.OFFVIS ---
Vital Signs 12/05/23 11:51 Height 5 ft 9 in Weight 236 lb BMI 34.8 BP 110/70 Intake Visit Reasons: Ultra sound follow up/post op Allergies No Known Allergies Allergy (Verified 10/24/23 16:09) HPI Comments Details: The patient is presenting post hysteroscopy D&C no complaints minimal vaginal bleeding no feverishness chills or abdominal pain. The pathology showed the following: A. Endometrial polyp, resection: Fragments of benign endometrial polyp; no atypia or carcinoma. B. Endometrium, curettage: Benign atrophic endometrium, fragments of benign polyp, and benign endocervical glandular and squamous epithelium; no atypia or carcinoma PFS Medical History Normal colonoscopy Annual physical exam Mammogram normal Normal Pap smear Malignant melanoma Elevated cholesterol HTN (hypertension) Surgical History History of Family History Paternal Aunt Breast cancer Social History Housing: House Alcohol intake: never Patient Tobacco Use Status: Never used Tobacco e-Cigarette/Vaping Use: Never Used Second Hand Smoke Exposure: No service: No Current occupational status: employed 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 Current occupational exposures/hazards: No Sexual orientation: Straight/Heterosexual Gender identity: Female Cognitive needs: No Hearing needs: No Vision needs: Yes Female Reproductive History Menstrual Age of Menarche: 12 Review of Systems Const All systems reviewed & are unremarkable except as noted in HPI and below Reports as per HPI and Reports no additional complaints GI Reports no additional complaints Reports no additional complaints Physical Exam Vital Signs: Last Vital Signs BP 110/70 12/05/23 11:51 BMI result Body Mass Index 34.8 Assessment & Plan Assessment & Plan (1) Postmenopausal bleeding: Comment: polyp on emb path status post polypectomy Code(s): N95.0 - Postmenopausal bleeding Category: Medical Plan: Discussed with the patient the results of the pathology of the polypectomy and endometrial scrapings. Discussed with the patient the sensitivity, specificity, positive and negative predictive value, of endometrial biopsy in detecting endometrial pathology including but not limited to endometrial hyperplasia, cancer and other pathology; instructed the patient to call in case vaginal bleeding bleeding recurs, the next step will be to proceed with further endometrial sampling evaluation to rule out endometrial pathology. All questions answered and the patient verbalized understanding and agreed with the plan. Coding Level of Care Code Est Pt Level 3 (52707) Diagnoses Postmenopausal bleeding N95.0
[2023-12-05 11:51] VITALS: BP 110/70; BMI 34.8
== END 2023-12-05 12:35 | disposition home or self-care (01) ==
PROVIDERS: PCP Internal Medicine; Visit Provider Obstetrics & Gynecology
DX: N95.0 Postmenopausal bleeding (principal)
CPT/HCPCS: 99213

== ENCOUNTER → 2023-12-05 11:44 | Outpatient (BNVA) | payer OTHER, SELFPAY | PROVIDERS: PCP Internal Medicine; Visit Provider Obstetrics & Gynecology ==

== ENCOUNTER 2024-02-05 11:00 | Outpatient (AMB) | payer OTHER, SELFPAY ==
[2024-02-05 11:02] VITALS: BP 106/70; PULSE 99; O2SAT 95; BMI 34.6
--- NOTE | 2024-02-05 11:02 | A.OFFPC_ITS ---
Vital Signs 02/05/24 11:02 Height 5 ft 9 in Weight 234 lb BMI 34.6 BP 106/70 Blood Pressure Location Rt brachial Position Sitting Pulse 99 Pulse Source Pulse Oximeter Pulse Oximetry (%) 95 Oxygen Delivery Method Room Air Intake Visit Reasons: 6 Month follow up Intake Note: Pt is here today for 6 months follow up visit. Allergies No Known Allergies Allergy (Verified 02/05/24 11:04) Medication List - Last Reconciled 02/05/24 by Sangeetha Mukherjee MD amlodipine 5 mg PO DAILY hydrochlorothiazide 25 mg PO QAM lisinopril 40 mg PO DAILY Tobacco use date assessed: 02/05/24 Dental Screening Dental Screen Date: 02/05/24 Did you have a dental visit in the last 12 months?: Yes Did you have a dental problem in the last 6 months where you did not have access to dental care?: No Was dental information given to patient?: Patient has dentist HPI 6 Month follow up HPI Details Patient presents for the follow-up on hypertension controlled on curr ent medications. She joined weight [employer] and lost 5 lb. 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 1. Little interest or pleasure in doing things: not at all 2. Feeling down, depressed, or hopeless: not at all 3. Trouble falling or staying asleep, or sleeping too much: not at all 4. Feeling tired or having little energy: not at all 5. Poor appetite or overeating: not at all 6. Feeling bad about yourself - or that you are a failure or have let yourself or your family down: not at all 7. Trouble concentrating on things, such as reading the newspaper or watching television: not at all 8. Moving or speaking so slowly that other people could have noticed. Or the opposite - being so fidgety or restless that you have been moving around a lot more than usual: not at all 9. Thoughts that you would be better off or of hurting yourself in some way: not at all Total score: 0 Depression Screening Interpretation: Negative Depression Screening Done: Yes Source: Developed by Drs. Kyle Siddiqui, Echo Gamboa, Aung Cr and colleagues, with an educational campbell from [employer]. Thrive Questionnaire Date Thrive assessed: 02/05/24 I am a: Patient What is your living situation today?: I have a steady place to live Within the past 12 months, did the food you bought not last and you didn't have the money to get more?: Never true Within the past 12 months, did you worry whether your food would run out before you got money to buy more?: Never true Do you have trouble paying for medicines?: No Do you have trouble getting transportation to medical appointments?: No Do you have trouble paying your heating and electricity bill?: No Do you have trouble taking care of your child, family member or friend?: No Do you have trouble with day-to-day activities such as bathing, preparing meals, shopping, managing finances, etc.?: No Are you currently unemployed and looking for a job?: No Are you interested in more education?: No Please select the resources that you would like help with: None THRIVE Score: 0 AUDIT C Alcohol Use Questionnaire (AUDIT-C) 2. How many drinks containing alcohol do you have on a typical day when you are drinking?: 1 or 2 3. How often do you have six or more drinks on one occasion?: Never Total Score: 0 GERSON-7 AMB Questionnaire GERSON-7 Date GERSON - 7 assessed: 02/05/24 Feeling nervous, anxious, or on edge: 0 = Not at all Not being able to stop or control worryin = Not at all Worrying too much about different things: 0 = Not at all Trouble relaxin = Not at all Being so restless that it is hard to sit still: 0 = Not at all Becoming easily annoyed or irritable: 0 = Not at all Feeling afraid as if something awful might happen: 0 = Not at all Total GERSON-7 score (0-4 normal; 5-9 mild; 10-14 moderate; 15-21 severe): 0 Source: Developed by Drs. Kyle Siddiqui, Echo Gamboa, Aung Cr and colleagues, with an educational campbell from [employer]. Review of Systems Const All systems reviewed & are unremarkable except as noted in HPI and below ENT Reports no additional complaints Card Reports no additional complaints Resp Reports no additional complaints GI Reports no additional complaints Reports no additional complaints Physical exam (Primary Care) Vital Signs: Last Vital Signs Pulse 99 02/05/24 11:02 BP 106/70 02/05/24 11:02 Pulse Ox 95 02/05/24 11:02 Oxygen Delivery Method Room Air 02/05/24 11:02 BMI result Body Mass Index 34.6 Tobacco/Smoking Status: Tobacco use Status Tobacco use date assessed 02/05/24 02/05/24 11:09 Patient Tobacco Use Status Never used Tobacco 02/05/24 11:09 e-Cigarette/Vaping Use Never Used 02/05/24 11:09 PHQ-9: PHQ-9 Score PHQ-9: Total score 0 02/05/24 11:09 Depression Screening Interpretation: Negative Thrive Assessment: Date of Thrive Assessment Date Thrive assessed 02/05/24 02/05/24 11:09 Const General: no acute distress Neck Neck: Yes supple Resp Effort & Inspection: normal respiratory effort Auscultation: clear to auscultation bilaterally Cardio Rhythm: regular rhythm Heart sounds: S1 normal heart sound present and S2 normal heart sound present GI Inspection: Yes normal to inspection Palpation (GI): Soft to palpation Percussion: Yes normal to percussion Auscultation: normal bowel sounds Assessment and Plan Assessment & Plan (1) HTN (hypertension): Code(s): I10 - Essential (primary) hypertension Plan: Continue current medications (2) Hyperglycemia: Code(s): R73.9 - Hyperglycemia, unspecified Plan: Continue ADA diet regular physical activity and weight loss. Check A1c today and in 6 months (3) Bacteriuria: Code(s): R82.71 - Bacteriuria Plan: Check UA and urine culture (4) Overweight: Code(s): E66.3 - Overweight Plan: Increase physical activity and decrease caloric intake and weight loss discussed with the patient Orders: Orders Hemoglobin A1c Today I10 - Essential (primary) hypertension, R73.9 - Hyperglycemia, unspecified, R82.71 - Bacteriuria UA w Microscopic Today I10 - Essential (primary) hypertension, R73.9 - Hyperglycemia, unspecified, R82.71 - Bacteriuria Urine Culture Today I10 - Essential (primary) hypertension, R73.9 - Hyperglycemia, unspecified, R82.71 - Bacteriuria Hemoglobin A1c 6 Months I10 - Essential (primary) hypertension, R73.9 - Hyperglycemia, unspecified, R82.71 - Bacteriuria Comprehensive [place]. Panel Fast 6 Months I10 - Essential (primary) hypertension, R73.9 - Hyperglycemia, unspecified, R82.71 - Bacteriuria Complete Blood Count Auto Diff 6 Months I10 - Essential (primary) hypertension, R73.9 - Hyperglycemia, unspecified, R82.71 - Bacteriuria Lipid Panel 6 Months I10 - Essential (primary) hypertension, R73.9 - Hyperglycemia, unspecified, R82.71 - Bacteriuria Lipid Panel Today I10 - Essential (primary) hypertension, R73.9 - Hyperglycemia, unspecified, R82.71 - Bacteriuria Comprehensive [place]. Panel Fast Today I10 - Essential (primary) hypertension, R73.9 - Hyperglycemia, unspecified, R82.71 - Bacteriuria UA w Microscopic 6 Months I10 - Essential (primary) hypertension, R73.9 - Hyperglycemia, unspecified, R82.71 - Bacteriuria Medications: Refilled hydrochlorothiazide 25 mg PO QAM 90 tabs 3RF lisinopril 40 mg PO DAILY 90 tabs 3RF I10 - Essential (primary) hypertension amlodipine 5 mg PO DAILY 90 tabs 3RF Coding Level of Care Code Est Pt Level 4 (48641) Diagnoses HTN (hypertension) I10 Hyperglycemia R73.9 Bacteriuria R82.71 Overweight E66.3
== END 2024-02-05 11:47 | disposition home or self-care (01) ==
PROVIDERS: PCP Internal Medicine; Visit Provider Internal Medicine
DX: I10 Essential (primary) hypertension (principal); R73.9 Hyperglycemia, unspecified; R82.71 Bacteriuria; E66.3 Overweight
CPT/HCPCS: 99214

== ENCOUNTER 2024-02-05 11:47 | Outpatient (REF) | payer OTHER, SELFPAY ==
[2024-02-05 13:14] LABS: Appearance Urine Clear; Color Urine Yellow; Glucose Urine UA Negative (Negative); Leukocyte Esterase Urine Negative (Negative); Nitrite Urine Negative (Negative); Urine Blood Negative (Negative); Urine Ketones Negative (Negative); Urine Protein Negative (Neg-Trace)
[2024-02-05 13:40] LABS: Alanine Aminotransferase 28 U/L (0-31); Albumin Level 4.5 g/dL (3.5-5.0); Alkaline Phosphatase 107 U/L (39-117); Anion Gap 14 (12-20); Aspartate Amino Transferase 22 U/L (5-31); Bilirubin Total 0.5 mg/dL (0.0-1.0); Blood Urea Nitrogen 19 mg/dL (9-16); Calcium 10.4 mg/dL (8.4-10.2); Carbon Dioxide 29 mmol/L (22-29); Chloride 103 mmol/L (96-108); Cholesterol 197 mg/dL (<200); Estimated Glomerular Filt Rate > 60; Glucose Fasting 97 mg/dL (60-99); HDL Cholesterol 45 mg/dL (>40); LDL Cholesterol Calculated 133 mg/dL (<100); Potassium 3.6 mmol/L (3.3-5.1); Sodium 142 mmol/L (135-145); Total Protein 7.6 g/dL (6.5-8.0); Triglycerides 98 mg/dL (<150)
[2024-02-05 13:41] LABS: Bacteria Urine Trace (None Seen); Hyaline Casts Urine 0-2 /LPF (0-2); RBC Urine 0-2 /HPF (0-2); Squamous Epithelial Cell Urine 0-2 /HPF (0-2); WBC Urine 0-5 /HPF (0-5)
[2024-02-05 13:45] LABS: Estimated Average Glucose 111 mg/dL; Hemoglobin A1c % 5.5 % (<6.0)
== END 2024-02-05 11:48 | disposition home or self-care (01) ==
LOC: HO.HMGCLDS 11:47
PROVIDERS: PCP Internal Medicine; Visit Provider Internal Medicine
DX: I10 Essential (primary) hypertension (principal); R73.9 Hyperglycemia, unspecified; R82.71 Bacteriuria
CPT/HCPCS: 36415; 80053; 80061; 81001; 83036; 87086

== ENCOUNTER 2024-07-30 14:38 | Outpatient (REF) | payer OTHER, SELFPAY ==
--- NOTE | ~2024-07-30 | MM_ITS ---
EXAMINATION: MM DIAGNOSTIC DIGITAL BREAST TOMOSYNTHESIS, BILATERAL CLINICAL INFORMATION: Two-year follow-up for right breast upper outer calcifications. COMPARISON: Mammography: Comparison is made with relevant prior exams. TECHNIQUE: Digital breast mammography with tomosynthesis is performed in both the craniocaudal and mediolateral oblique views along with computer-aided detection (CAD). FINDINGS: The breasts are heterogeneously dense, which may obscure small masses (ACR BI-RADS breast composition Category c). Grouped punctate calcifications in the upper outer right breast are not significantly changed on prior magnification views dating back for 2 years and therefore benign. There are no significant masses, abnormal calcifications, or other abnormalities. Results are provided to the patient at time of visit by the technologist. MM/MM tomosynthesis diagnostic BI IMPRESSION: No mammographic evidence of malignancy. ASSESSMENT: BI-RADS BI-RADS 2 - Benign Findings RECOMMENDATION: 1 year F/U This patient's information was entered into a reminder system with a target due date for their next mammogram. Electronically signed by: Daniela Cabrera DO 07/30/2024 03:34 PM ALEJANDRO NOONAN
== END 2024-07-30 14:39 | disposition home or self-care (01) ==
LOC: HO.MAMMO 14:38
PROVIDERS: PCP Internal Medicine; Visit Provider Internal Medicine
DX: R92.1 Mammographic calcification found on diagnostic imaging of breast (principal)
CPT/HCPCS: 77062; 77066

== ENCOUNTER → 2024-07-30 15:00 | Outpatient (BNV) | payer OTHER, SELFPAY | PROVIDERS: PCP Internal Medicine; Visit Provider Internal Medicine | DX: R92.333 Mammographic heterogeneous density, bilateral breasts (principal); R92.1 Mammographic calcification found on diagnostic imaging of breast | CPT/HCPCS: 77062; 77066 ==

== ENCOUNTER 2024-08-12 06:07 | Outpatient (REF) | payer OTHER, SELFPAY ==
[2024-08-12 09:52] LABS: MANUAL DIFF FLAG NO
[2024-08-12 09:57] LABS: Appearance Urine Turbid; Color Urine Yellow; Glucose Urine UA Negative (Negative); Leukocyte Esterase Urine Moderate (2+) (Negative); Nitrite Urine Positive (Negative); PH 5.5 (5.0-9.0); Specific Gravity - Urine 1.025 (1.005-1.025); UMIC TRIGGER UA YES; Urine Blood Trace (Negative); Urine Ketones Negative (Negative); Urine Protein Trace mg/dL (Neg-Trace)
[2024-08-12 10:08] LABS: Basophils Absolute Auto 0.1 X10*3/uL (0.0-0.2); Basophils Percent Auto 1.4 % (0-2); Eosinophils Absolute Auto 0.2 X10*3/uL (0.0-0.4); Eosinophils Percent Auto 3.4 % (0-4); Hematocrit 43.2 % (37.0-47.0); Hemoglobin 14.1 g/dl (12.0-16.0); Imm Gran Abs Auto 0.02 X10*3/uL (0.00-0.03); Imm Gran Pct Auto 0.3 % (0.0-0.4); Lymphocytes Percent Auto 28.2 % (20-40); Mean Corpuscular HGB Conc 32.6 g/dl (31.0-35.0); Mean Corpuscular Hemoglobin 27.5 pg (27.0-33.0); Mean Corpuscular Volume 84.2 fL (80.0-98.0); Mean Platelet Volume 9.4 fL (9.4-12.3); Monocytes Absolute Auto 0.6 X10*3/uL (0.1-1.2); Monocytes Percent Auto 8.5 % (2-11); Neutrophils Absolute Auto 4.1 x10*3/uL (2.0-8.3); Neutrophils Percent Auto 58.2 % (45-73); Platelet Count 329 X10*3/uL (160-400); Red Blood Count 5.13 X10*6/uL (4.20-5.50); Red Cell Distribution Width 13.3 % (11.0-16.0)
[2024-08-12 10:20] LABS: Bacteria Urine 4+ (None Seen); Calcium Oxalate Crystals Urine Present; Hyaline Casts Urine 0-2 /LPF (0-2); WBC Urine 21-50 /HPF (0-5)
[2024-08-12 10:33] LABS: Estimated Average Glucose 114 mg/dL; Hemoglobin A1C 139.2396 umol/L; Hemoglobin A1c % 5.6 % (<6.0); Total Hemoglobin (HGBA1C) 3735.7888 umol/L
[2024-08-12 10:47] LABS: Alanine Aminotransferase 72 U/L (0-31); Albumin Level 4.1 g/dL (3.5-5.0); Alkaline Phosphatase 109 U/L (39-117); Anion Gap 12 (12-20); Aspartate Amino Transferase 41 U/L (5-31); Bilirubin Total 0.5 mg/dL (0.0-1.0); Blood Urea Nitrogen 19 mg/dL (9-16); Calcium 9.1 mg/dL (8.4-10.2); Carbon Dioxide 27 mmol/L (22-29); Chloride 106 mmol/L (96-108); Cholesterol 204 mg/dL (<200); Estimated Glomerular Filt Rate > 60; Glucose Fasting 109 mg/dL (60-99); HDL Cholesterol 45 mg/dL (>40); LDL Cholesterol Calculated 135 mg/dL (<100); Potassium 3.5 mmol/L (3.3-5.1); Sodium 141 mmol/L (135-145); Total Protein 6.9 g/dL (6.5-8.0); Triglycerides 120 mg/dL (<150)
== END 2024-08-12 06:08 | disposition home or self-care (01) ==
LOC: HO.HMGCLDS 06:07
PROVIDERS: PCP Internal Medicine; Visit Provider Internal Medicine
DX: I10 Essential (primary) hypertension (principal); R73.9 Hyperglycemia, unspecified; R82.71 Bacteriuria
CPT/HCPCS: 36415; 80053; 80061; 81001; 83036; 85025

== ENCOUNTER 2024-08-19 08:16 | Outpatient (AMB) | payer OTHER, SELFPAY ==
[2024-08-19 08:20] VITALS: BP 120/74; PULSE 97; O2SAT 97; BMI 35.3
--- NOTE | 2024-08-19 08:20 | A.OFFPC_ITS ---
Vital Signs 08/19/24 08:20 Height 5 ft 9 in Weight 239 lb BMI 35.3 BP 120/74 Blood Pressure Location Lt brachial Position Sitting Pulse 97 Pulse Source Pulse Oximeter Pulse Oximetry (%) 97 Oxygen Delivery Method Room Air Intake Visit Reasons: PE Intake Note: Pt is here today for PE. Allergies No Known Allergies Allergy (Verified 08/19/24 08:22) Medication List - Last Reconciled 08/19/24 by Sangeetha Mukherjee MD amlodipine 5 mg PO DAILY hydrochlorothiazide 25 mg PO QAM lisinopril 40 mg PO DAILY nitrofurantoin monohyd/m-cryst 100 mg (Macrobid) 100 mg PO Q12H 7 days Tobacco use date assessed: 08/19/24 Dental Screening Dental Screen Date: 08/19/24 Did you have a dental visit in the last 12 months?: Yes Did you have a dental problem in the last 6 months where you did not have access to dental care?: No Was dental information given to patient?: Patient has dentist HPI PE HPI Details Patient presents for physical. She is retiring in February and will be taking care of her 2 month grandson. 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 1. Little interest or pleasure in doing things: not at all 2. Feeling down, depressed, or hopeless: not at all 3. Trouble falling or staying asleep, or sleeping too much: not at all 4. Feeling tired or having little energy: not at all 5. Poor appetite or overeating: not at all 6. Feeling bad about yourself - or that you are a failure or have let yourself or your family down: not at all 7. Trouble concentrating on things, such as reading the newspaper or watching television: not at all 8. Moving or speaking so slowly that other people could have noticed. Or the opposite - being so fidgety or restless that you have been moving around a lot more than usual: not at all 9. Thoughts that you would be better off or of hurting yourself in some way: not at all Total score: 0 Depression Screening Interpretation: Negative Depression Screening Done: Yes 46832 - PHQ-9 Billing: Yes Source: Developed by Drs. Kyle Siddiqui, Echo Gamboa, Aung Cr and colleagues, with an educational campbell from [employer] Thrive Questionnaire Date Thrive assessed: 08/19/24 I am a: Patient What is your living situation today?: I have a steady place to live Within the past 12 months, did the food you bought not last and you didn't have the money to get more?: Never true Within the past 12 months, did you worry whether your food would run out before you got money to buy more?: Never true Do you have trouble paying for medicines?: No Do you have trouble getting transportation to medical appointments?: No Do you have trouble paying your heating and electricity bill?: No Do you have trouble taking care of your child, family member or friend?: No Do you have trouble with day-to-day activities such as bathing, preparing meals, shopping, managing finances, etc.?: No Are you currently unemployed and looking for a job?: No Are you interested in more education?: No Please select the resources that you would like help with: None Currently or been in a relationship where the following occur: No concerns reported THRIVE Score: 0 AUDIT C Alcohol Use Questionnaire (AUDIT-C) 1. How often do you have a drink containing alcohol?: Monthly or less 2. How many drinks containing alcohol do you have on a typical day when you are drinking?: 1 or 2 3. How often do you have six or more drinks on one occasion?: Never Total Score: 1 GERSON-7 AMB Questionnaire GERSON-7 Date GERSON - 7 assessed: 08/19/24 Feeling nervous, anxious, or on edge: 0 = Not at all Not being able to stop or control worryin = Not at all Worrying too much about different things: 0 = Not at all Trouble relaxin = Not at all Being so restless that it is hard to sit still: 0 = Not at all Becoming easily annoyed or irritable: 0 = Not at all Feeling afraid as if something awful might happen: 0 = Not at all Total GERSON-7 score (0-4 normal; 5-9 mild; 10-14 moderate; 15-21 severe): 0 Source: Developed by Drs. Kyle Siddiqui, Echo Gamboa, Aung Cr and colleagues, with an educational campbell from [employer] GERSON-7 Assessment Billing GERSON-7 Assessment Tool: GERSON-7 Assessment 19744 Review of Systems Const All systems reviewed & are unremarkable except as noted in HPI and below Reports no additional complaints Eyes Reports no additional complaints ENT Reports no additional complaints Card Reports no additional complaints Resp Reports no additional complaints GI Reports no additional complaints Reports no additional complaints Physical exam (Primary Care) Vital Signs: Last Vital Signs Pulse 97 08/19/24 08:20 BP 120/74 08/19/24 08:20 Pulse Ox 97 08/19/24 08:20 Oxygen Delivery Method Room Air 08/19/24 08:20 BMI result Body Mass Index 35.3 Tobacco/Smoking Status: Tobacco use Status Tobacco use date assessed 08/19/24 08/19/24 08:25 Patient Tobacco Use Status Never used Tobacco 08/19/24 08:25 e-Cigarette/Vaping Use Never Used 08/19/24 08:25 PHQ-9: PHQ-9 Score PHQ-9: Total score 0 08/19/24 08:25 Depression Screening Interpretation: Negative Thrive Assessment: Date of Thrive Assessment Date Thrive assessed 08/19/24 08/19/24 08:25 Currently or been in a relationship where the following occur: No concerns reported Const General: no acute distress HENMT Head: Yes normal to inspection Ears: hearing grossly normal bilaterally Throat: Yes posterior oropharynx normal Neck Neck: Yes no lymphadenopathy and Yes supple Resp Effort & Inspection: normal respiratory effort Auscultation: clear to auscultation bilaterally Cardio Rhythm: regular rhythm Heart sounds: S1 normal heart sound present and S2 normal heart sound present GI Inspection: Yes normal to inspection Palpation (GI): Soft to palpation Percussion: Yes normal to percussion Auscultation: normal bowel sounds Coding Level of Care Code Est Pt Prev Care 40-64y(42087) Diagnoses HTN (hypertension) I10 Annual physical exam Z00.00 Elevated LFTs R79.89 Additional Codes GERSON-7 Assessment Billing - GERSON-7 Assessment Tool: GERSON-7 Assessment 02388 ([id number]) PHQ-9 - 22683 - PHQ-9 Billing: Yes ([id number]) Assessment & Plan Assessment & Plan (1) HTN (hypertension): Code(s): I10 - Essential (primary) hypertension Category: Medical Plan: Continue current medications (2) Annual physical exam: Code(s): Z00.00 - Encounter for general adult medical examination without abnormal findings Category: Medical Plan: Well-balanced diet regular physical activity discussed with the patient. She is up-to-date with the mammogram and Pap smear by inspector heating and refrigeration. (3) Elevated LFTs: Code(s): R79.89 - Other specified abnormal findings of blood chemistry Category: Medical Plan: Decrease simple carbohydrates, intake increase physical activity weight loss discussed with the patient, repeat LFTs in 1 month if still elevated liver ultrasound will be obtained. Patient will follow-up in 6 months with a fasting labs before Orders: Orders Lipid Panel 6 Months E66.3 - Overweight, I10 - Essential (primary) hypertension, R73.9 - Hyperglycemia, unspecified, R79.89 - Other specified abnormal findings of blood chemistry Liver Panel 1 Month E66.3 - Overweight, I10 - Essential (primary) hypertension, R73.9 - Hyperglycemia, unspecified, R79.89 - Other specified abnormal findings of blood chemistry Comprehensive [place]. Panel Fast 6 Months E66.3 - Overweight, I10 - Essential (primary) hypertension, R73.9 - Hyperglycemia, unspecified, R79.89 - Other specified abnormal findings of blood chemistry Hemoglobin A1c 6 Months E66.3 - Overweight, I10 - Essential (primary) hypertension, R73.9 - Hyperglycemia, unspecified, R79.89 - Other specified abnormal findings of blood chemistry Complete Blood Count Auto Diff 6 Months E66.3 - Overweight, I10 - Essential (primary) hypertension, R73.9 - Hyperglycemia, unspecified, R79.89 - Other specified abnormal findings of blood chemistry
== END 2024-08-19 08:41 | disposition home or self-care (01) ==
PROVIDERS: PCP Internal Medicine; Visit Provider Internal Medicine
DX: I10 Essential (primary) hypertension (principal); Z00.00 Encounter for general adult medical examination without abnormal findings; R79.89 Other specified abnormal findings of blood chemistry

== ENCOUNTER → 2024-08-19 08:16 | Outpatient (BNVA) | payer OTHER, SELFPAY | PROVIDERS: PCP Internal Medicine; Visit Provider Internal Medicine | DX: Z00.00 Encounter for general adult medical examination without abnormal findings (principal); I10 Essential (primary) hypertension; R79.89 Other specified abnormal findings of blood chemistry | CPT/HCPCS: 96127 ==

== ENCOUNTER 2024-10-28 07:58 | Outpatient (AMB) | payer OTHER, SELFPAY ==
--- NOTE | 2024-10-28 08:01 | A.OFFVIS_ITS ---
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 She is doing well with sustainment logistics analyst concerns. Currently sexually active. Denies any vaginal dryness or irritation. STI testing offered; she declines. Attempting to eat a healthy diet with calcium and vitamin D and stays active with exercise. Last pap smear; 2020. Last mammogram; 2023. Colonoscopy is UTD. Denies any family history of ovarian or colon cancer. FH breast cancer. 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 Current occupational exposures/hazards: No Sexual orientation: Straight/Heterosexual Gender identity: Female Cognitive needs: No Hearing needs: No Vision needs: Yes Female Reproductive History Menstrual Age of Menarche: 12 Menopause type: natural Total pregnancies: 1 Full term: 1 Number of Living Children: 1 Date of last pap smear: 07/18/21 (neg pap and hpv) Date of Mammogram: 07/30/24 ([facility] 2) Review of Systems Const All systems reviewed & are unremarkable except as noted in HPI and below Reports as per HPI Eyes Reports no additional complaints ENT Reports no additional complaints Card Reports no additional complaints Resp Reports no additional complaints GI Reports as per HPI and Reports no additional complaints Reports as per HPI Musc Reports no additional complaints Skin/Breast Reports as per HPI Neuro Reports no additional complaints Psych Reports no additional complaints Endo Reports no additional complaints Josef/Lymph Reports no additional complaints Aller/Immun Reports no additional complaints Physical Exam Vital Signs: Last Vital Signs BP 112/74 10/28/24 08:02 BMI result Body Mass Index 34.6 Const General: cooperative, healthy appearing, no acute distress, well developed and alert Orientation/consciousness: patient oriented x3 HEENT Head: Yes normal to inspection Eyes General: appearance normal, both eyes and all related structures Neck Neck: Yes normal visual inspection Thyroid: Thyroid normal Chest Chest palpation & inspection: normal inspection of the chest and other (no puckering, dimpling, peau de orange, retraction, discharge, masses) Breast/axilla inspection: normal inspection of the breasts Breast/axilla palpation: normal palpation of the breasts Resp Effort & Inspection: normal respiratory effort GI Inspection: Yes normal to inspection Palpation (GI): Soft to palpation Rectal Exam - Female: deferred General: Yes bladder normal to palpation External Female Exam: normal external appearance and normal appearance of the urethra Speculum Exam - Vagina: normal appearance of the vagina, normal palpation and normal vaginal discharge Speculum Exam - Cervix: normal appearance of the cervix and normal palpation Bimanual exam- vagina & uterus: normal bimanual exam, normal palpation, uterine size normal, bladder normal to palpation, normal palpation and non-tender Bimanual Exam- Adnexa, other: no masses Skin General skin exam: no rashes or lesions noted Rashes: no rashes Neuro General: patient oriented x3 Cognition (Neuro): normal cognition Extrem General: Yes normal to inspection Psych Attitude: cooperative Thought process: Normal thought process present Assessment & Plan Assessment & Plan (1) Well woman exam with routine gynecological exam: Code(s): Z01.419 - Encounter for gynecological examination (general) (routine) without abnormal findings Category: Medical Plan Discussed: Current recommendations for pap smears per ASCCP guidelines. Breast awareness, periodic self breast exams and yearly mammogram. Maintain a healthy lifestyle, well balanced diet including Calcium 1,200 mg and Vitamin D 600 IU daily, and routine exercise. Contact the office with any postmenopausal bleeding. Patient verbalizes understanding and agrees to the plan of care. She was given opportunity to ask questions and all questions were answered to the best of my ability. RTO in 1 year for annual sustainment logistics analyst exam. This note is constructed using voice recognition software. While every effort has been made to ensure accuracy, earth mover errors may have been included. Coding Level of Care Code Est Pt Prev Care 40-64y(36028) Diagnoses Well woman exam with routine gynecological exam Z01.419
[2024-10-28 08:02] VITALS: BP 112/74; BMI 34.6
== END 2024-10-28 08:37 | disposition home or self-care (01) ==
LOC: HO.HWS 07:58
PROVIDERS: PCP Internal Medicine; Visit Provider Advanced Practice Midwife
DX: Z01.419 Encounter for gynecological examination (general) (routine) without abnormal findings (principal)
CPT/HCPCS: 99396; 99459

== ENCOUNTER 2025-03-02 06:42 | Outpatient (REF) | payer OTHER, SELFPAY ==
[2025-03-02 10:07] LABS: MANUAL DIFF FLAG NO
[2025-03-02 10:25] LABS: Hematocrit 44.1 % (37.0-47.0); Hemoglobin 14.6 g/dl (12.0-16.0); Imm Gran Abs Auto 0.02 X10*3/uL (0.00-0.03); Imm Gran Pct Auto 0.3 % (0.0-0.4); Lymphocytes Absolute Auto 2.1 X10*3/uL (1.2-4.9); Mean Corpuscular HGB Conc 33.1 g/dl (31.0-35.0); Mean Corpuscular Hemoglobin 27.7 pg (27.0-33.0); Mean Corpuscular Volume 83.7 fL (80.0-98.0); NRBC Abs Auto 0.000 X10*3/uL (0.0-0.012); NRBC Pct Auto 0.0 /100WBC (0.0-0.2); Platelet Count 335 X10*3/uL (160-400); Red Blood Count 5.27 X10*6/uL (4.20-5.50); White Blood Count 7.0 X10*3/uL (4.8-10.8)
[2025-03-02 10:28] LABS: Hemoglobin A1C 142.1881 umol/L; Total Hemoglobin (HGBA1C) 3692.1018 umol/L
[2025-03-02 10:49] LABS: Alanine Aminotransferase 51 U/L (0-31); Albumin Level 4.4 g/dL (3.5-5.0); Alkaline Phosphatase 105 U/L (39-117); Anion Gap 12 (12-20); Aspartate Amino Transferase 30 U/L (5-31); Blood Urea Nitrogen 17 mg/dL (9-16); Calcium 9.3 mg/dL (8.4-10.2); Carbon Dioxide 28 mmol/L (22-29); Chloride 104 mmol/L (96-108); Cholesterol 186 mg/dL (<200); Estimated Glomerular Filt Rate > 60; HDL Cholesterol 40 mg/dL (>40); Potassium 3.4 mmol/L (3.3-5.1); Sodium 141 mmol/L (135-145); Total Protein 7.1 g/dL (6.5-8.0); Triglycerides 135 mg/dL (<150)
== END 2025-03-02 06:43 | disposition home or self-care (01) ==
LOC: HO.HMGCLDS 06:42
PROVIDERS: PCP Internal Medicine; Visit Provider Internal Medicine
DX: R79.89 Other specified abnormal findings of blood chemistry (principal); E66.3 Overweight; I10 Essential (primary) hypertension; R73.9 Hyperglycemia, unspecified
CPT/HCPCS: 36415; 80053; 80061; 80076; 82248; 83036; 85025

== ENCOUNTER 2025-03-03 13:35 | Outpatient (AMB) | payer OTHER, SELFPAY ==
[2025-03-03 13:37] VITALS: BP 122/78; PULSE 97; RESP 18; TEMP 36.4; O2SAT 97; BMI 35.4
--- NOTE | 2025-03-03 13:37 | MHC.PC.OV ---
Vital Signs 03/03/25 13:37 Height 5 ft 9 in Weight 240 lb BMI 35.4 BP 122/78 Blood Pressure Location Lt brachial Position Sitting Respiration 18 Pulse 97 Pulse Source Pulse Oximeter Temp 97.5 F Temp Source Oral Pulse Oximetry (%) 97 Oxygen Delivery Method Room Air Intake Visit Reasons: 6 months f/up Intake Note: Pt is here today for 6 months follow up visit. Allergies No Known Allergies Allergy (Verified 03/03/25 13:38) Medication List - Last Reconciled 03/03/25 by Sangeetha Mukherjee MD amlodipine 5 mg PO DAILY hydrochlorothiazide 25 mg PO QAM lisinopril 40 mg PO DAILY Tobacco use date assessed: 03/03/25 Dental Screening Dental Screen Date: 03/03/25 Did you have a dental visit in the last 12 months?: Yes Did you have a dental problem in the last 6 months where you did not have access to dental care?: No Was dental information given to patient?: Patient has dentist HPI 6 months f/up HPI Details Patient presents for the follow-up on hypertension. She retired and will be taking care of her 2-month-old grandson twice a week. 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 Current occupational exposures/hazards: No Sexual orientation: Straight/Heterosexual Gender identity: Female Cognitive needs: No Hearing needs: No Vision needs: Yes Female Reproductive History Menstrual Age of Menarche: 12 Questionnaire Thrive Questionnaire Date Thrive assessed: 08/19/24 I am a: Patient What is your living situation today?: I have a steady place to live Within the past 12 months, did the food you bought not last and you didn't have the money to get more?: Never true Within the past 12 months, did you worry whether your food would run out before you got money to buy more?: Never true Do you have trouble paying for medicines?: No Do you have trouble getting transportation to medical appointments?: No Do you have trouble paying your heating and electricity bill?: No Do you have trouble taking care of your child, family member or friend?: No Do you have trouble with day-to-day activities such as bathing, preparing meals, shopping, managing finances, etc.?: No Are you currently unemployed and looking for a job?: No Are you interested in more education?: No Please select the resources that you would like help with: None Currently or been in a relationship where the following occur: No concerns reported THRIVE Score: 0 GERSON-7 AMB Questionnaire GERSON-7 Date GERSON - 7 assessed: 08/19/24 Source: Developed by Drs. Kyle Siddiqui, Echo Gamboa, Aung Cr and colleagues, with an educational campbell from [employer]. Review of Systems Const All systems reviewed & are unremarkable except as noted in HPI and below ENT Reports no additional complaints Card Reports no additional complaints Resp Reports no additional complaints GI Reports no additional complaints Reports no additional complaints Physical exam (Primary Care) Vital Signs: Last Vital Signs Temp 97.5 F 03/03/25 13:37 Pulse 97 03/03/25 13:37 Resp 18 03/03/25 13:37 BP 122/78 03/03/25 13:37 Pulse Ox 97 03/03/25 13:37 Oxygen Delivery Method Room Air 03/03/25 13:37 BMI result Body Mass Index 35.4 Tobacco/Smoking Status: Tobacco use Status Tobacco use date assessed 03/03/25 03/03/25 13:38 Patient Tobacco Use Status Never used Tobacco 03/03/25 13:38 e-Cigarette/Vaping Use Never Used 03/03/25 13:38 Thrive Assessment: Date of Thrive Assessment Date Thrive assessed 08/19/24 03/03/25 13:38 Currently or been in a relationship where the following occur: No concerns reported Const General: no acute distress HENMT Head: Yes normal to inspection Eyes General: appearance normal, both eyes and all related structures Resp Effort & Inspection: normal respiratory effort Auscultation: clear to auscultation bilaterally Cardio Rhythm: regular rhythm Heart sounds: S1 normal heart sound present and S2 normal heart sound present Coding Level of Care Code Est Pt Level 3 (26002) Diagnoses HTN (hypertension) I10 Hyperglycemia R73.9 Overweight E66.3 Assessment & Plan Assessment & Plan (1) HTN (hypertension): Code(s): I10 - Essential (primary) hypertension Category: Medical Plan: Continue current medications (2) Hyperglycemia: Comment: a1c 5.7 02/2025 Code(s): R73.9 - Hyperglycemia, unspecified Category: Medical Plan: ADA diet increase exercise weight loss discussed with the pt (3) Overweight: Code(s): E66.3 - Overweight Category: Medical Plan: Decreasing caloric intake increasing physical activity discussed with the patient return for physical in 6 months with a fasting labs before Orders: Orders Comprehensive [place]. Panel Fast 6 Months E66.3 - Overweight, I10 - Essential (primary) hypertension, R73.9 - Hyperglycemia, unspecified Microalbumin, Random (w Creat) 6 Months E66.3 - Overweight, I10 - Essential (primary) hypertension, R73.9 - Hyperglycemia, unspecified UA w Microscopic 6 Months E66.3 - Overweight, I10 - Essential (primary) hypertension, R73.9 - Hyperglycemia, unspecified Complete Blood Count Auto Diff 6 Months E66.3 - Overweight, I10 - Essential (primary) hypertension, R73.9 - Hyperglycemia, unspecified Lipid Panel 6 Months E66.3 - Overweight, I10 - Essential (primary) hypertension, R73.9 - Hyperglycemia, unspecified Hemoglobin A1c 6 Months E66.3 - Overweight, I10 - Essential (primary) hypertension, R73.9 - Hyperglycemia, unspecified TSH reflex Free T4 6 Months E66.3 - Overweight, I10 - Essential (primary) hypertension, R73.9 - Hyperglycemia, unspecified Vitamin D 25-OH (D2 and D3) 6 Months E66.3 - Overweight, I10 - Essential (primary) hypertension, R73.9 - Hyperglycemia, unspecified
== END 2025-03-03 14:04 | disposition home or self-care (01) ==
LOC: HO.HMCC 13:36
PROVIDERS: PCP Internal Medicine; Visit Provider Internal Medicine
DX: I10 Essential (primary) hypertension (principal); R73.9 Hyperglycemia, unspecified; E66.3 Overweight

== ENCOUNTER 2025-08-10 07:24 | Outpatient (REF) | payer OTHER, SELFPAY ==
--- NOTE | ~2025-08-10 | MM_ITS ---
EXAMINATION: MM SCREENING DIGITAL BREAST TOMOSYNTHESIS, BILATERAL CLINICAL INFORMATION: Screening. Asymptomatic. COMPARISON: Mammography: Comparison is made with available priors TECHNIQUE: Digital breast mammography with tomosynthesis is performed in both the craniocaudal and mediolateral oblique views along with computer-aided detection (CAD). FINDINGS: The breasts are heterogeneously dense, which may obscure small masses. There are no significant masses, abnormal calcifications, or other abnormalities. MM/MM tomosynthesis screening BI IMPRESSION: No mammographic evidence of malignancy. ASSESSMENT: BI-RADS Category 1: Negative RECOMMENDATION: Routine annual mammography screening. 1 year F/U This examination should not preclude the clinical evaluation of a suspicious palpable abnormality. This patient's information was entered into a reminder system with a target due date for their next mammogram. Electronically signed by: Daniela Cabrera DO 08/11/2025 04:51 PM [email or web address]
== END 2025-08-10 07:25 ==
LOC: HO.MAMMO 07:24
PROVIDERS: PCP Internal Medicine; Visit Provider Internal Medicine
DX: Z12.31 Encounter for screening mammogram for malignant neoplasm of breast (principal)
CPT/HCPCS: 77063; 77067

== ENCOUNTER → 2025-08-10 07:30 | Outpatient (BNV) | payer OTHER, SELFPAY | PROVIDERS: PCP Internal Medicine; Visit Provider Internal Medicine | DX: Z12.31 Encounter for screening mammogram for malignant neoplasm of breast (principal) | CPT/HCPCS: 77063; 77067 ==

== ENCOUNTER 2025-08-12 07:14 | Outpatient (REF) | payer OTHER, SELFPAY ==
[2025-08-12 10:19] LABS: MANUAL DIFF FLAG NO
[2025-08-12 10:26] LABS: Hematocrit 43.6 % (37.0-47.0); Hemoglobin 14.5 g/dl (12.0-16.0); Imm Gran Abs Auto 0.01 X10*3/uL (0.00-0.03); Imm Gran Pct Auto 0.1 % (0.0-0.4); Lymphocytes Absolute Auto 2.0 X10*3/uL (1.2-4.9); Mean Corpuscular HGB Conc 33.3 g/dl (31.0-35.0); Mean Corpuscular Hemoglobin 27.7 pg (27.0-33.0); Mean Corpuscular Volume 83.2 fL (80.0-98.0); NRBC Abs Auto 0.000 X10*3/uL (0.0-0.012); NRBC Pct Auto 0.0 /100WBC (0.0-0.2); Platelet Count 329 X10*3/uL (160-400); Red Blood Count 5.24 X10*6/uL (4.20-5.50); White Blood Count 6.9 X10*3/uL (4.8-10.8)
[2025-08-12 10:41] LABS: Microalbum/Creatinine Ratio Ur 4.2 ug/mg cr (<30)
[2025-08-12 10:53] LABS: Alanine Aminotransferase 53 U/L (0-31); Albumin Level 4.4 g/dL (3.5-5.0); Alkaline Phosphatase 98 U/L (39-117); Anion Gap 12 (12-20); Aspartate Amino Transferase 31 U/L (5-31); Blood Urea Nitrogen 20 mg/dL (9-16); Calcium 9.5 mg/dL (8.4-10.2); Carbon Dioxide 27 mmol/L (22-29); Chloride 106 mmol/L (96-108); Cholesterol 208 mg/dL (<200); Estimated Glomerular Filt Rate > 60; HDL Cholesterol 40 mg/dL (>40); Potassium 3.7 mmol/L (3.3-5.1); Sodium 141 mmol/L (135-145); Total Protein 7.0 g/dL (6.5-8.0); Triglycerides 206 mg/dL (<150)
[2025-08-12 11:45] LABS: Appearance Urine Turbid; Glucose Urine UA Negative (Negative); PH 6.0 (5.0-9.0)
[2025-08-12 11:46] LABS: Specific Gravity - Urine 1.025 (1.005-1.025); UMIC TRIGGER UA YES
== END 2025-08-12 07:15 | disposition home or self-care (01) ==
LOC: HO.HMGCLDS 07:14
PROVIDERS: PCP Internal Medicine; Visit Provider Internal Medicine
DX: I10 Essential (primary) hypertension (principal); E66.3 Overweight; R73.9 Hyperglycemia, unspecified
CPT/HCPCS: 36415; 80053; 80061; 81001; 82043; 82306; 82570; 83036; 84443; 85025